=== PATIENT | female | born 1935 | race Caucasian/White ===

== ENCOUNTER 2017-10-23 06:44 | Inpatient (IN) | payer MEDICARE, MEDICAID ==
[~2017-10-23] VITALS: Ht 167.6 cm; Wt 82.6 kg
--- NOTE | ~2017-10-23 | EC ---
PATIENT:JULIA SEN DATE OF SERVICE: 10/23/17 SEX: F MEDICAL RECORD: [id number] DATE OF : [birth year] LOCATION:[facility] AGE OF PATIENT: 82 ADMISSION DATE: 10/23/17 REFERRING PHYSICIAN: INTERPRETING PHYSICIAN: SUSAN GONSALEZ MD ECHOCARDIOGRAM REPORT ECHO CHARGES 4 ECHO COMPLETE CLINICAL DIAGNOSIS: CHF ECHOCARDIOGRAPHIC MEASUREMENTS (adult normal given) AC root (d.<3.7cm) 3.1 cm LV Septum d (<1.2 cm> 1.5 cm Valve Excursion 1.4 cm LV Septum (systole) 1.7 cm Left Atria (s.<4.0cm> 4.3 cm LVPW d(<1.2cm) 1.6 cm RV (d.<2.3cm) 3.6 cm LVPW (sytole) 1.9 cm LV diastole(<5.6CM) 4.0 cm MV E-F(>70mm/sec) cm LV systole 2.9 cm LVOT Diameter 1.6 cm MV exc.(>10mm) cm Est.ejection fraction (50-75%) % Pericardial Effusion N DOPPLER: LVIT cm/sec A 55.0 cm/sec E 69.0 cm/sec LA cm/sec RVSP 16 mmHg LVOT 117 cm/sec AOP1/2T m/s Asc. Ao 140 cm/sec RVOT 77 cm/sec RA cm/sec PA 101 cm/sec AV Gradient Peak 7.89 mmHg AV Mean 4.70 mmHg AV Area 1.8 cm MV Gradient Peak 3.50 mmHg MV Mean 1.07 mmHg MV Area cm COMMENTS: Tube Fitter: 2 EMILY PARIKH Managing Consultant: 4 Dr. Gonsalez TAPE# PACS DATE OF SERVICE: 10/23/2017 PROCEDURE: Transthoracic echocardiogram. FINDINGS: 1. The left ventricle has mild left ventricular hypertrophy. Inflow characteristics are normal. There is no regional wall motion abnormality. The ejection fraction is 65%. 2. The left atrium is mildly dilated. 3. The aortic valve is normal. ECHOCARDIOGRAM REPORT [id number] JULIA SEN 4. The mitral valve has mild mitral regurgitation. 5. There is trace tricuspid regurgitation. RVSP is normal. 6. The right atrium and right ventricle are mildly dilated. CONCLUSIONS: The patient has evidence of hypertensive heart disease with mild dilatation of the right-sided structures, but normal right ventricular systolic pressures. TRANSINT:[id number] Voice Confirmation ID: [id number] DOCUMENT ID: [id number] 10/30/2017 Edited to correct date of service, dmm. SUSAN GONSALEZ MD CC: [id number] DICTATION DATE: 10/24/17 1013 HIM CLERK: 10/24/17 1100 DIS IN 10/27/17 [place] [id number]
[2017-10-23 07:26] LABS: BASOPHILS 0.2 % (0-2); EOSINOPHILS 0.3 % (0-7); IMMATURE GRANULOCYTES 0.2 % (0-5); LYMPHOCYTES 11.7 % (15-50); MCH 31.1 pg (26.0-34.0); MCHC 33.3 g/dL (31.0-37.0); MCV 93.3 fL (80.0-100.0); MEAN PLATELET VOLUME 9.6 fL (7.4-10.4); MONOCYTES 8.3 % (2-11); NEUTROPHILS 79.3 % (40-80); PLATELET COUNT 177 10x3/uL (130-400); RBC 3.86 10x6/uL (4.00-5.40); RDW 14.8 % (11.5-14.5); WBC 9.8 10x3/uL (4.8-10.8)
[2017-10-23 07:45] LABS: ALBUMIN 2.6 g/dL (3.4-5.0); ANION GAP 15.8 mmol/L (8-16); BILIRUBIN - TOTAL 0.77 mg/dL (0.2-1.3); CALCIUM 8.6 mg/dL (8.5-10.1); CARBON DIOXIDE 25.8 mmol/L (21.0-32.0); CREATININE - SERUM 1.6 mg/dL (0.6-1.3); POTASSIUM - SERUM 3.6 mmol/L (3.5-5.1); PROTEIN - SERUM 6.9 g/dL (6.4-8.2)
[2017-10-23 07:56] LABS: MAGNESIUM - SERUM 1.6 mg/dL (1.8-2.4); TROPONIN-I 0.055 ng/mL (0.000-0.060)
[2017-10-23 08:38] LABS: APPEARANCE SLT CLOUDY (CLEAR); BACTERIA MANY /hpf (NONE SEEN); BILIRUBIN NEGATIVE (NEGATIVE); COLOR YELLOW (YELLOW); GLUCOSE NEGATIVE (NEGATIVE); KETONE NEGATIVE (NEGATIVE); MUCUS <1+ /lpf (NONE SEEN); NITRITE NEGATIVE (NEGATIVE); PROTEIN NEGATIVE (NEGATIVE); RED CELLS - URINE RARE /hpf (0-5); SPECIFIC GRAVITY 1.015 (1.005-1.020); UROBILINOGEN NORMAL (NORMAL)
[2017-10-23 08:39] LABS: GRANULAR CAST RARE /lpf (NONE SEEN)
[2017-10-23 20:00] VITALS: BP 149/77
[2017-10-23 23:15] VITALS: BP 122/64; BMI 29.4
[2017-10-24] MEDS ORDERED: FISH OIL 1,0001 CA1 PO (01:00)
[2017-10-24] MEDS ORDERED: LASIX40 MG PO (01:01)
[2017-10-24] MEDS ORDERED: XALATAN 0.0052.5 ML EACH EYE (01:02)
[2017-10-24] MEDS ORDERED: LOPRESSOR25 MG PO (01:09)
[2017-10-24] MEDS ORDERED: IPRAT-ALBUT 0.5-3 ML UPD (01:11)
[2017-10-24] MEDS ORDERED: GUAIFENESI100 MG/5 M PO (01:12)
[2017-10-24] MEDS ORDERED: SENNA LAXATIVE8.6 MG PO (01:13)
[2017-10-24] MEDS ORDERED: VITAMIN B-121000 MCG PO (01:15)
[2017-10-24] MEDS ORDERED: ZOCOR40 MG PO (01:17)
[2017-10-24] MEDS ORDERED: VITAMIN D5000 UNIT PO (01:17)
[2017-10-24] MEDS ORDERED: ACETAMINOPHEN325 MG PO (01:19)
[2017-10-24] MEDS ORDERED: BAYER CHEWABLE81 MG PO (01:20)
[2017-10-24] MEDS ORDERED: BRILINTA90 MG PO (01:21)
[2017-10-24] MEDS ORDERED: CALCIUM 600+D T1 TA1 PO (01:23)
[2017-10-24] MEDS ORDERED: COSOPT EYE DROPS5 ML EACH EYE (01:23)
[2017-10-24 04:00] VITALS: BP 116/61
[2017-10-24 08:41] VITALS: BP 142/79
[2017-10-24 10:47] VITALS: Ht 167.6 cm; Wt 82.6 kg
[2017-10-24 11:55] VITALS: BP 150/78
[2017-10-24 16:04] VITALS: BP 117/64
[2017-10-24 20:00] VITALS: BP 175/83
[2017-10-25] VITALS: BP 112/69
[2017-10-25 04:00] VITALS: BP 135/54
[2017-10-25 04:15] LABS: BASOPHILS 0.2 % (0-2); EOSINOPHILS 1.3 % (0-7); HEMATOCRIT 36.9 % (36.0-48.0); HEMOGLOBIN 12.4 g/dL (12-16); LYMPHOCYTES 19.8 % (15-50); MCH 30.8 pg (26.0-34.0); MCHC 33.6 g/dL (31.0-37.0); MCV 91.8 fL (80.0-100.0); MEAN PLATELET VOLUME 9.9 fL (7.4-10.4); MONOCYTES 6.8 % (2-11); NEUTROPHILS 70.9 % (40-80); RBC 4.02 10x6/uL (4.00-5.40); RDW 14.4 % (11.5-14.5); WBC 10.1 10x3/uL (4.8-10.8)
[2017-10-25 04:21] LABS: PLATELET COUNT 246 10x3/uL (130-400)
[2017-10-25 04:31] LABS: ANION GAP 16.1 mmol/L (8-16); CALCIUM 8.6 mg/dL (8.5-10.1); CARBON DIOXIDE 25.5 mmol/L (21.0-32.0); CREATININE - SERUM 1.3 mg/dL (0.6-1.3); POTASSIUM - SERUM 3.6 mmol/L (3.5-5.1)
[2017-10-25 04:37] LABS: MAGNESIUM - SERUM 2.3 mg/dL (1.8-2.4)
[2017-10-25 08:21] VITALS: BP 155/91
[2017-10-25 12:36] VITALS: BP 122/67
[2017-10-25 16:23] VITALS: BP 122/64
[2017-10-25 23:37] VITALS: BP 120/62
[2017-10-26 04:00] VITALS: BP 109/40
[2017-10-26 08:04] VITALS: BP 126/56
[2017-10-26 11:58] VITALS: BP 139/68
[2017-10-26 16:24] VITALS: BP 124/51
[2017-10-26 20:00] VITALS: BP 139/44
[2017-10-27 04:00] VITALS: BP 163/68
[2017-10-27 09:41] VITALS: BP 123/56
[2017-10-27 11:48] VITALS: BP 102/64
[2017-10-27] MEDS ORDERED: XOPENEX 1.1.25 MG/3 INH (12:28)
[2017-10-27] MEDS ORDERED: Levaquin PREMIX PO (12:28)
[2017-10-27] MEDS ORDERED: LASIX40 MG PO (12:28)
== END 2017-10-27 14:08 | DRG 689 ==
LOC: D.ER 06:44 → D.MS 08:49 → D.SDCHOLD 08:49 → D.MS 16:16
PROVIDERS: Emergency Medicine; Family Medicine
DX: N39.0 Urinary tract infection, site not specified (principal); J18.9 Pneumonia, unspecified organism; N17.9 Acute kidney failure, unspecified; E83.42 Hypomagnesemia; E86.0 Dehydration; H40.9 Unspecified glaucoma; E78.5 Hyperlipidemia, unspecified; I25.10 Atherosclerotic heart disease of native coronary artery without angina pectoris; I11.0 Hypertensive heart disease with heart failure; I50.9 Heart failure, unspecified; M81.0 Age-related osteoporosis without current pathological fracture; E55.9 Vitamin D deficiency, unspecified; E53.8 Deficiency of other specified B group vitamins; R32 Unspecified urinary incontinence; R53.1 Weakness

== ENCOUNTER → 2019-02-05 10:04 | Outpatient (CLI) | payer MEDICARE, MEDICAID ==
[2017-10-24 10:47] VITALS: BMI 29.3
--- NOTE | ~2019-02-05 | EC ---
PATIENT:JULIA SEN DATE OF SERVICE: 02/05/19 SEX: F MEDICAL RECORD: [id number] DATE OF : [birth year] [facility] AGE OF PATIENT: 83 ADMISSION DATE: 02/05/19 REFERRING PHYSICIAN: INTERPRETING PHYSICIAN: CYDNEY SIDDIQUI MD ECHOCARDIOGRAM REPORT ECHO CHARGES 4 ECHO COMPLETE Date: 02/05/19 CLINICAL DIAGNOSIS: HTN/MITRAL REGURG ECHOCARDIOGRAPHIC MEASUREMENTS (adult normal given) AC root (d.<3.7cm) 2.5 cm LV Septum d (<1.2 cm> 1.4 cm Valve Excursion 1.4 cm LV Septum (systole) 1.6 cm Left Atria (s.<4.0cm> 3.3 cm LVPW d(<1.2cm) 1.6 cm RV (d.<2.3cm) 3.8 cm LVPW (sytole) 1.8 cm LV diastole(<5.6CM) 4.8 cm MV E-F(>70mm/sec) cm LV systole 3.5 cm LVOT Diameter 1.6 cm MV exc.(>10mm) cm Est.ejection fraction (50-75%) % DOPPLER: LVIT cm/sec A 70.0 cm/sec E 58.0 cm/sec LA cm/sec RVSP 36 mmHg LVOT 91 cm/sec AOP1/2T m/s Asc. Ao 127 cm/sec RVOT cm/sec RA cm/sec PA cm/sec AV Gradient Peak 6.43 mmHg AV Mean 3.68 mmHg AV Area 1.5 cm MV Gradient Peak 6.94 mmHg MV Mean 1.93 mmHg MV Area cm COMMENTS: Shaft Repairer: 2 EMILY PARIKH Supervisor Paper Testing: 3 Dr. Farrell TAPE# PACS Pericardial Effusion N DATE OF SERVICE: Adequate 2D, color flow, spectral Doppler, and M-Mode. Mild LVH. LV internal dimensions are normal. Wall motion is normal. EF is greater than 55%. Aortic valve is tricuspid, no evidence of stenosis by Doppler interrogation. Left atrium is normal. Mitral valve shows no prolapse. Mild MR. Right-sided chambers grossly normal. Trace TR. TRANSINT:[id number] Voice Confirmation ID: [id number] DOCUMENT ID: [id number] ECHOCARDIOGRAM REPORT [id number] JULIA SEN CYDNEY SIDDIQUI MD CC: [id number] DICTATION DATE: 02/09/19 1257 RECORDS OFFICER: 02/09/19 1504 DEP CLI 02/05/19 [place] [id number] [place] [id number]
[~2019-02-05 10:04] MED LIST: ACETAMINOPHEN325 MG PO; BAYER CHEWABLE81 MG PO; BRILINTA90 MG PO; CALCIUM 600+D T1 TA1 PO; COSOPT EYE DROPS5 ML EACH EYE; FISH OIL 1,0001 CA1 PO; GUAIFENESI100 MG/5 M PO; IPRAT-ALBUT 0.5-3 ML UPD; LASIX40 MG PO; LOPRESSOR25 MG PO; Levaquin PREMIX PO; SENNA LAXATIVE8.6 MG PO; VITAMIN B-121000 MCG PO; VITAMIN D5000 UNIT PO; XALATAN 0.0052.5 ML EACH EYE; XOPENEX 1.1.25 MG/3 INH; ZOCOR40 MG PO
== END | disposition home or self-care (01) ==
LOC: D.HCCARDIO 10:04
PROVIDERS: ATTEND Internal Medicine Interventional Cardiology
DX: I10 Essential (primary) hypertension (principal)

== ENCOUNTER 2019-03-03 14:53 | Inpatient (IN) | payer MEDICARE, MEDICAID ==
[2019-03-03 16:00] LABS: HEMATOCRIT 32.6 % (36.0-48.0); HEMOGLOBIN 10.8 g/dL (12-16); MCHC 33.1 g/dL (31.0-37.0); MCV 93.7 fL (80.0-100.0); MEAN PLATELET VOLUME 9.3 fL (7.4-10.4); PLATELET COUNT 253 10x3/uL (130-400); RBC 3.48 10x6/uL (4.00-5.40); RDW 14.6 % (11.5-14.5); WBC 8.9 10x3/uL (4.8-10.8)
[2019-03-03 16:19] LABS: ALBUMIN 2.7 g/dL (3.4-5.0); ANION GAP 12.4 mmol/L (8-16); BILIRUBIN - TOTAL 0.34 mg/dL (0.2-1.3); CARBON DIOXIDE 27.6 mmol/L (21.0-32.0); CREATININE - SERUM 1.8 mg/dL (0.6-1.3); PROTEIN - SERUM 7.4 g/dL (6.4-8.2)
[2019-03-03 16:48] LABS: EOSINOPHILS 2 % (0-7); LYMPHOCYTES 25 % (15-50); MONOCYTES 1 % (2-11); NEUTROPHILS 72 % (40-80); PLATELET ESTIMATE NORMAL
--- NOTE | 2019-03-03 17:24 | NUR ---
MULTIPLE UNSUCCESSFUL IV START ATTEMPTS MADE. DEVON MELENDEZ RN NOTIFIED.
--- NOTE | 2019-03-03 19:42 | NUR ---
REPORT CALLED TO DORYS, FLOOR NURSE
--- NOTE | 2019-03-03 19:50 | NUR ---
ZOSYN INFUSION COMPLETE AT THIS TIME.
--- NOTE | 2019-03-03 20:32 | NUR ---
RECEIVED FROM ER DEPT PER MARC TO ROOM 2217 AN 83 Y/O W/FE PER SERVICES DR. TORRES WITH DX RT LOWER EXTREMITY CELLUTITIS. RT LOWER LEG RED AND SWOLLEN WITH SOME SCALEY SKIN. ALLERGY=LIDOCAINE/CLINORIL.PLACED BED ALARM ON BED SR UP X2 CALL LIGHT WITHIN REACH. IV PATENT LEFT UPPER ARM SALINE LOCKED. VANCOMYCIN STARTED.PLACED ON TELM. SHOWS SR WITH HR 73.INC URINE BRIEF CHANGED.
[2019-03-03 21:14] VITALS: BP 149/55
--- NOTE | 2019-03-03 22:00 | NUR ---
SUJEY AQUATIC PHYSIOTHERAPIST HERE ORDERS REC'D. NOTIFIED SUPERVISER FOR MEDS.
--- NOTE | 2019-03-03 22:15 | NUR ---
OIYS=347 NO COVERAGE NEEDED.
[2019-03-04] VITALS (7 sets, daily range): BP systolic 129–160; BP diastolic 54–77; BMI 31.4; BMI 31.3
--- NOTE | 2019-03-04 | NUR ---
EYES CLOSED RESPIRATIONS WITH EASE AND UNLABORED. REPOSITIONED FOR COMFORT.
--- NOTE | 2019-03-04 01:25 | NUR ---
MEDS STARTED PER NOV. NS AT 50CC'S/HR STARTED ANTIBIOTIC HUNG AND PROTONIX GIVEN IVP.
--- NOTE | 2019-03-04 03:15 | NUR ---
INC URINE LINENS CHANGED.
[2019-03-04 05:42] LABS: ANION GAP 10.7 mmol/L (8-16); CALCIUM 8.7 mg/dL (8.5-10.1); CARBON DIOXIDE 26.1 mmol/L (21.0-32.0); CREATININE - SERUM 1.6 mg/dL (0.6-1.3); MAGNESIUM - SERUM 2.5 mg/dL (1.8-2.4); PHOSPHOROUS 3.1 mg/dL (2.5-4.9); POTASSIUM - SERUM 4.8 mmol/L (3.5-5.1)
[2019-03-04 05:56] LABS: BASOPHILS 0.3 % (0-2); EOSINOPHILS 1.8 % (0-7); HEMATOCRIT 29.8 % (36.0-48.0); HEMOGLOBIN 9.7 g/dL (12-16); IMMATURE GRANULOCYTES 2.1 % (0-5); LYMPHOCYTES 22.2 % (15-50); MCH 30.3 pg (26.0-34.0); MCHC 32.6 g/dL (31.0-37.0); MCV 93.1 fL (80.0-100.0); MEAN PLATELET VOLUME 9.1 fL (7.4-10.4); MONOCYTES 8.9 % (2-11); NEUTROPHILS 64.7 % (40-80); PLATELET COUNT 233 10x3/uL (130-400); RDW 14.7 % (11.5-14.5)
[2019-03-04 12:08] LABS: APPEARANCE CLEAR (CLEAR); BILIRUBIN NEGATIVE (NEGATIVE); COLOR YELLOW (YELLOW); GLUCOSE NEGATIVE (NEGATIVE); KETONE NEGATIVE (NEGATIVE); NITRITE NEGATIVE (NEGATIVE); PROTEIN NEGATIVE (NEGATIVE); UROBILINOGEN NORMAL (NORMAL)
[2019-03-04 12:09] LABS: BACTERIA FEW /hpf (NONE SEEN); EPITHELIAL CELLS OCC /hpf (0-5); MUCUS <1+ /lpf (NONE SEEN); RED CELLS - URINE RARE /hpf (0-5); YEAST <1+ /hpf (NONE SEEN)
[2019-03-04 14:29] LABS: % SATURATION 19 % (15-55); IRON 35 ug/dl (35-150); TOTAL IRON BIND CAPACITY 183 ug/dl (260-445); UNSAT IRON BIND CAPACITY 148 ug/dl (150-375)
[2019-03-04 14:42] LABS: FERRITIN 270 ng/mL (3-244); LDH 246 U/L (81-234)
--- NOTE | 2019-03-04 20:00 | NUR ---
PT ALERT & ORIENTED. RIGHT LOWER LEG REDDENED AND SWOLLEN. PT INCONTINENT. BED CHANGE DONE BY MARLINE STEVENS. ASSESSMENT COMPLETE PER FLOW-SHEET. NO OTHER NEEDS. WILL CONTINUE TO MONITOR.
[2019-03-05 01:08] VITALS: BP 154/65
[2019-03-05 05:21] VITALS: BP 154/79
[2019-03-05 07:00] LABS: ANION GAP 11.7 mmol/L (8-16); CALCIUM 8.5 mg/dL (8.5-10.1); CARBON DIOXIDE 25.3 mmol/L (21.0-32.0); CREATININE - SERUM 1.6 mg/dL (0.6-1.3); MAGNESIUM - SERUM 2.4 mg/dL (1.8-2.4); PHOSPHOROUS 2.7 mg/dL (2.5-4.9)
[2019-03-05 07:07] LABS: BASOPHILS 0.3 % (0-2); EOSINOPHILS 1.7 % (0-7); HEMATOCRIT 30.3 % (36.0-48.0); HEMOGLOBIN 9.8 g/dL (12-16); IMMATURE GRANULOCYTES 1.8 % (0-5); LYMPHOCYTES 23.3 % (15-50); MCH 30.2 pg (26.0-34.0); MCHC 32.3 g/dL (31.0-37.0); MCV 93.2 fL (80.0-100.0); MEAN PLATELET VOLUME 9.2 fL (7.4-10.4); MONOCYTES 7.2 % (2-11); NEUTROPHILS 65.7 % (40-80); PLATELET COUNT 256 10x3/uL (130-400); RBC 3.25 10x6/uL (4.00-5.40); RDW 14.8 % (11.5-14.5); WBC 7.2 10x3/uL (4.8-10.8)
[2019-03-05 07:20] LABS: FOLATE (FOLIC ACID) - SERUM 19.4 ng/mL (>3.0)
[2019-03-05 10:30] VITALS: BP 122/93
--- NOTE | 2019-03-05 10:30 | NUR ---
ASSIST WITH BEDPAN. PT IS WITHOUT NEEDS.MONITOR
[2019-03-05 12:00] VITALS: BP 168/78
--- NOTE | 2019-03-05 15:30 | MORECARE ---
CASE MANAGEMENT DISCHARGE SUMMARY PATIENT: JULIA SEN UNIT: [id number] ADM DATE: 03/03/19 AGE: 83 : 34 SEX: F ROOM/BED: D.2217 AUTHOR: AGUEDA PRIDE PHYSICIAN: REFERRING PHYSICIAN: CINTHYA TORRES MD DATE OF SERVICE: 03/05/19 Discharge Plan Patient Name: JULIA SEN [facility] [facility] 1935 Planned Disposition: Anticipated Discharge Date: Discharge Date: Expected LOS: Initial Reviewer: [email or web address] Initial Review Date: 03/03/2019 Generated: 03/05/19 4:30 pm Patient Name: JULIA SEN Page 52222 at 1530 All edits/amendments must be made on the electronic document DICTATION DATE: 03/05/19 1530 POWER LINE INSTALLER: CLAUDIA 03/05/19 1530 RPT#: [id number] DC DATE: STATUS: ADM IN [facility] [address] [place] [address] END OF REPORT
[2019-03-05 17:23] VITALS: BP 174/60
[2019-03-05 20:23] VITALS: BP 197/76
--- NOTE | 2019-03-05 22:48 | NUR ---
PT CONFUSED TO PLACE AND SITUATION. BP 197/76. PAGE BRANDO GONZALEZ. LISA RESTARTED HOME MEDICATIONS. GAVE PT HE MEDS. PT INCONTINENT OF BLADDER. CHANGED PADS. BUTTOCKS REDDENED. APPLIED BUTT PASTE AND TURNED PT. NO OTHER NEEDS. WILL CONTINUE TO MONITOR.
[2019-03-06 00:27] VITALS: BP 173/66
[2019-03-06 05:12] VITALS: BP 147/82
[2019-03-06 07:13] LABS: BASOPHILS 0.3 % (0-2); EOSINOPHILS 1.7 % (0-7); HEMATOCRIT 29.5 % (36.0-48.0); HEMOGLOBIN 9.7 g/dL (12-16); IMMATURE GRANULOCYTES 1.5 % (0-5); LYMPHOCYTES 22.4 % (15-50); MCH 30.6 pg (26.0-34.0); MCHC 32.9 g/dL (31.0-37.0); MCV 93.1 fL (80.0-100.0); MEAN PLATELET VOLUME 8.8 fL (7.4-10.4); MONOCYTES 8.1 % (2-11); PLATELET COUNT 258 10x3/uL (130-400); RBC 3.17 10x6/uL (4.00-5.40); RDW 14.8 % (11.5-14.5); WBC 7.1 10x3/uL (4.8-10.8)
[2019-03-06 07:34] LABS: ANION GAP 15.2 mmol/L (8-16); CALCIUM 8.2 mg/dL (8.5-10.1); CARBON DIOXIDE 21.6 mmol/L (21.0-32.0); CREATININE - SERUM 1.3 mg/dL (0.6-1.3); MAGNESIUM - SERUM 2.4 mg/dL (1.8-2.4); PHOSPHOROUS 2.4 mg/dL (2.5-4.9); POTASSIUM - SERUM 4.8 mmol/L (3.5-5.1)
[2019-03-06 09:41] VITALS: BP 122/86
[2019-03-06 12:59] VITALS: BP 153/66
[2019-03-06 16:28] VITALS: BP 196/79
--- NOTE | 2019-03-06 18:20 | MORECARE ---
CASE MANAGEMENT DISCHARGE SUMMARY PATIENT: JULIA SEN UNIT: [id number] ADM DATE: 03/03/19 AGE: 83 : 34 SEX: F ROOM/BED: D.2217 AUTHOR: AGUEDA PRIDE PHYSICIAN: REFERRING PHYSICIAN: CINTHYA TORRES MD DATE OF SERVICE: 03/06/19 Discharge Plan Patient Name: JULIA SEN [facility] [facility] 1935 Planned Disposition: Anticipated Discharge Date: Discharge Date: Expected LOS: Initial Reviewer: [email or web address] Initial Review Date: 03/03/2019 Generated: 03/06/19 7:20 pm Comments DCP- Discharge Planning Updated by [email or web address]: Kadie Rajput on 03/06/19 5:[address] PATIENT IS A RESIDENT AT [facility]. SHE WAS IN A DETENTION BED. CM SPOKE W/ SHEA AT FACILITY. CODE STATUS- FULL CODE PCP- DR RAINEY [facility]- [facility] [place] PROVIDER CM TO FOLLOW TO ASSIST WITH D/C PLANNING. Last DP export: 03/05/19 2:30 p Patient Name: JULIA SEN Page [phone] at 1820 All edits/amendments must be made on the electronic document DICTATION DATE: 03/06/191819 TAX CONSULTANT: CLAUDIA 03/06/191819 RPT#: [id number] DC DATE: STATUS: ADM IN [facility] [address] [place] [address] END OF REPORT
--- NOTE | 2019-03-06 18:33 | NUR ---
I have reviewed this patient and I concur with the Shift Assessment completed by the Licensed Practical Nurse today this shift.
[2019-03-06 20:00] VITALS: BP 199/93
[2019-03-07] VITALS: BP 189/81
--- NOTE | 2019-03-07 02:00 | NUR ---
PT CONFUSED TO PLACE AND SITUATION. INCONTINENT OF BLADDER. GOWN AND LINEN CHANGE. BUTTOCKS REDDENED, APPLIED BUTT PASTE. NO OTHER NEEDS. WILL CONTINUE TO MONITOR.
[2019-03-07 04:00] VITALS: BP 144/76
[2019-03-07 06:09] LABS: BASOPHILS 0.3 % (0-2); HEMATOCRIT 30.3 % (36.0-48.0); HEMOGLOBIN 9.8 g/dL (12-16); IMMATURE GRANULOCYTES 1.1 % (0-5); LYMPHOCYTES 13.3 % (15-50); MCH 30.6 pg (26.0-34.0); MCHC 32.3 g/dL (31.0-37.0); MCV 94.7 fL (80.0-100.0); MEAN PLATELET VOLUME 9.1 fL (7.4-10.4); MONOCYTES 9.4 % (2-11); NEUTROPHILS 74.9 % (40-80); PLATELET COUNT 274 10x3/uL (130-400); RDW 14.9 % (11.5-14.5)
[2019-03-07 06:23] LABS: WBC 10.5 10x3/uL (4.8-10.8)
[2019-03-07 06:34] LABS: CALCIUM 7.9 mg/dL (8.5-10.1); CARBON DIOXIDE 20.5 mmol/L (21.0-32.0); CREATININE - SERUM 1.3 mg/dL (0.6-1.3); MAGNESIUM - SERUM 2.1 mg/dL (1.8-2.4); PHOSPHOROUS 2.2 mg/dL (2.5-4.9); POTASSIUM - SERUM 4.5 mmol/L (3.5-5.1)
[2019-03-07 09:19] VITALS: BP 159/81
[2019-03-07 12:55] VITALS: BP 167/74
--- NOTE | 2019-03-07 15:10 | NUR ---
PATIENT RESTING WITH NO DISTRESS, PLACED ON 2L/NC D/T 02 SAT 78%RA. PATIENT RECOVERED TO 97% WITH THE 2L. PATIENT IS CONFUSED AND HALLUCINATING AT TIMES
[2019-03-07 17:28] VITALS: BP 186/66
[2019-03-07 20:00] VITALS: BP 172/84
--- NOTE | 2019-03-07 21:50 | NUR ---
PT CONFUSED TO PLACE AND SITUATION. INCONTINENT OF URINE. CLEANED PT AND COMPLETE BED CHANGE. ON BACK FOR THIS TURN. GAVE SCHEDULED MEDS GIVEN. COMPLETE ASSESSMENT PER FLOW-SHEET. BED ALARM ON. WILL CONTINUE TO MONITOR.
--- NOTE | 2019-03-08 04:35 | NUR ---
ASSISTANT ACTIVITIES DIRECTOR CALLED. PT HAS BEEN IN UNCONTROLLED A-FIB FOR ABOUT AN HOUR. NO DYSPNEA OR DISTRESS NOTED. VITAL SIGNS STABLE - T-97.0, BP-141/69, P-112, R-18, OX-97% 2L/NC. WILL MONITOR PT, IF NOT CONVERTED BACK TO SR BY 0600 WILL CALL PHYSICIAN. CHANGED AND TURNED PT. RESTING QUIETLY, EYES CLOSED.
[2019-03-08 05:07] VITALS: BP 141/69
[2019-03-08 05:07] LABS: BASOPHILS 0.2 % (0-2); EOSINOPHILS 1.2 % (0-7); HEMATOCRIT 27.6 % (36.0-48.0); HEMOGLOBIN 9.1 g/dL (12-16); IMMATURE GRANULOCYTES 1.4 % (0-5); LYMPHOCYTES 15.3 % (15-50); MCH 30.7 pg (26.0-34.0); MCV 93.2 fL (80.0-100.0); MONOCYTES 9.7 % (2-11); NEUTROPHILS 72.2 % (40-80); PLATELET COUNT 247 10x3/uL (130-400); RBC 2.96 10x6/uL (4.00-5.40); WBC 8.4 10x3/uL (4.8-10.8)
[2019-03-08 05:24] LABS: ANION GAP 15.5 mmol/L (8-16); CALCIUM 7.8 mg/dL (8.5-10.1); CARBON DIOXIDE 19.9 mmol/L (21.0-32.0); CREATININE - SERUM 1.2 mg/dL (0.6-1.3); POTASSIUM - SERUM 4.4 mmol/L (3.5-5.1)
--- NOTE | 2019-03-08 06:42 | NUR ---
UNCONTROLLED AFIB NOT CONVERTED BACK SINCE START AT 033. CALLED BRANDO GALLEGOS. RECEIVED ORDER TO CONSULT CARDIOLOGY. SPOKE WITH DR. LARA.
[2019-03-08 08:21] VITALS: BMI 31.3
[2019-03-08 09:01] VITALS: BP 133/82
[2019-03-08 13:18] VITALS: BP 129/67
[2019-03-08 16:45] VITALS: BP 158/69
--- NOTE | 2019-03-08 20:00 | NUR ---
ASSESSMENT PER FLOWSHEET. IV PATENT LEFT ARM OF NS AT 50CC'S/HR. SITE CLEAR. O2 ON 2L/M PER NC. NO DISTRESS. TELM. SHOWS SR WITH HR 69. BED ALARM BED ACTIVATED SR UP X2 CALL LIGHT WITHIN REACH. RT LEG RED AND SWOLLEN LEFT LEG WITH SCD.
--- NOTE | 2019-03-08 21:00 | NUR ---
MEDS GIVEN PER MAR. INC URINE LINENS CHANGED.
[2019-03-08 21:12] VITALS: BP 150/59
--- NOTE | 2019-03-09 | NUR ---
EYES CLOSED RESPIRATIONS WITH EASE AND UNLABORED.
[2019-03-09 01:12] VITALS: BP 125/54
--- NOTE | 2019-03-09 04:00 | NUR ---
INC URINE COMPLETE BED BATH WITH LINENS CHANGED.
[2019-03-09 04:45] VITALS: BP 134/60
[2019-03-09 06:00] LABS: BASOPHILS 0.4 % (0-2); EOSINOPHILS 2.9 % (0-7); HEMATOCRIT 27.7 % (36.0-48.0); HEMOGLOBIN 8.9 g/dL (12-16); IMMATURE GRANULOCYTES 3.2 % (0-5); LYMPHOCYTES 21.4 % (15-50); MCH 30.3 pg (26.0-34.0); MCHC 32.1 g/dL (31.0-37.0); MCV 94.2 fL (80.0-100.0); MONOCYTES 11.3 % (2-11); NEUTROPHILS 60.8 % (40-80); PLATELET COUNT 231 10x3/uL (130-400); RBC 2.94 10x6/uL (4.00-5.40); RDW 15.6 % (11.5-14.5)
[2019-03-09 06:26] LABS: ALBUMIN 2.5 g/dL (3.4-5.0); ANION GAP 13.7 mmol/L (8-16); BILIRUBIN - TOTAL 0.39 mg/dL (0.2-1.3); CARBON DIOXIDE 20.9 mmol/L (21.0-32.0); CREATININE - SERUM 1.4 mg/dL (0.6-1.3); POTASSIUM - SERUM 4.6 mmol/L (3.5-5.1); PROTEIN - SERUM 6.7 g/dL (6.4-8.2)
--- NOTE | 2019-03-09 07:45 | NUR ---
ASSESSMENT PER FLOW SHEET. PT IS WITHOUT DISTRESS.FALL PREVENTION IN PLACE WITH RENATA. MONITOR FOR NEEDS
[2019-03-09 08:00] VITALS: BP 152/65
[2019-03-09] MEDS ORDERED: KEFLEX500 MG PO (12:00)
[2019-03-09] MEDS ORDERED: BETAPACE 80 MG80 MG PO (12:00)
[2019-03-09] MEDS ORDERED: FLORAJEN3 CAPS460 MG PO (12:00)
--- NOTE | 2019-03-09 12:01 | MORECARE ---
CASE MANAGEMENT DISCHARGE SUMMARY PATIENT: JULIA SEN UNIT: [id number] ADM DATE: 03/03/19 AGE: 83 : 34 SEX: F ROOM/BED: D.2217 AUTHOR: AGUEDA PRIDE PHYSICIAN: REFERRING PHYSICIAN: CINTHYA TORRES MD DATE OF SERVICE: 03/09/19 Discharge Plan Patient Name: JULIA SEN [facility] [facility] 1935 Planned Disposition: Anticipated Discharge Date: Discharge Date: Expected LOS: Initial Reviewer: [email or web address] Initial Review Date: 03/03/2019 Generated: 03/09/19 1:01 pm DCP- Discharge Planning Updated by [email or web address]: Kadie Rajput on 03/06/19 5:[address] PATIENT IS A RESIDENT AT [facility]. SHE WAS IN A SKILLED NURSING BED. CM SPOKE W/ SHEA AT FACILITY. CODE STATUS- FULL CODE PCP- DR RAINEY ALLERGIES- [facility]- [place] PROVIDER CM TO FOLLOW TO ASSIST WITH D/C PLANNING. External Providers External Provider: [facility] Next Contact Date: Service Request Date: Service Type: Resolution: Reviewer: Comments: Last DP export: 03/06/19 5:20 p Patient Name: JULIA SEN Page [phone] at 1201 All edits/amendments must be made on the electronic document DICTATION DATE: 03/09/19 1200 EXTRACT MIXER: CLAUDIA 03/09/19 1200 RPT#: [id number] DC DATE: STATUS: ADM IN [facility] [address] [place] [address] END OF REPORT
--- NOTE | 2019-03-09 12:42 | MORECARE ---
CASE MANAGEMENT DISCHARGE SUMMARY PATIENT: JULIA SEN UNIT: [id number] ADM DATE: 03/03/19 AGE: 83 : 34 SEX: F ROOM/BED: D.2217 AUTHOR: AGUEDA PRIDE PHYSICIAN: REFERRING PHYSICIAN: CINTHYA TORRES MD DATE OF SERVICE: 03/09/19 Discharge Plan Patient Name: JULIA SEN Facility: [facility]:[place] : 1935 Planned Disposition: Anticipated Discharge Date: Discharge Date: Expected LOS: Initial Reviewer: [id number] Initial Review Date: 03/03/2019 Generated: 03/09/19 1:42 pm Comments DCP- Discharge Planning Updated by [id number]: Gail Petersen on 03/09/19 11:[address] Patient Name: JULIA SEN Admission Status: ER Accout number: [id number] Admission Date: 03-03-2019 : 1935 Admission Diagnosis:CELLULITIS OF RIGHT LOWER LIMB Attending: CINTHYA TORRES Current LOS: 6 Anticipated DC Date: Planned Disposition: Primary Insurance: [employer] CHOICE PPO MCR [employer] Discharge Planning Comments: CM SPOKE WITH [facility], THEY WILL SEND VAN TO [place] AT ABOUT 3PM TODAY. CM TO FOLLOW AND ASSIST NEEDED. Road Machine Operator: Gail Petersen DCP- Discharge Planning Updated by [id number]: Kadie Stricklands on 03/06/19 5:[address] PATIENT IS A RESIDENT AT [facility]. SHE WAS IN A FDC BED. CM SPOKE W/ SHEA AT FACILITY. CODE STATUS- FULL CODE PCP- DR RAINEY ALLERGIES- [facility]- [place] PROVIDER CM TO FOLLOW TO ASSIST WITH D/C PLANNING. Last DP export: 03/09/19 11:01 a Patient Name: JULIA SEN Page 44407 at 1242 All edits/amendments must be made on the electronic document DICTATION DATE: 03/09/19 1241 CREPE SOLE SCOURER: CLAUDIA 03/09/19 1241 RPT#: [id number] DC DATE: STATUS: [facility] [address] [place] [address] END OF REPORT
--- NOTE | 2019-03-09 13:50 | NUR ---
PT O2 SATURATION 93% ON ROOM AIR
[2019-03-09 15:10] VITALS: BP 159/77
--- NOTE | 2019-03-09 15:42 | NUR ---
REPORT TO SELVIN,SPOKE WITH REYNA
--- NOTE | 2019-03-09 16:06 | NUR ---
LEFT UNIT WITH [facility] STAFF FOR TRANSPORT TO FACILITY
--- NOTE | 2019-03-10 08:00 | MORECARE ---
CASE MANAGEMENT DISCHARGE SUMMARY PATIENT: JULIA SEN UNIT: [id number] ADM DATE: 03/03/19 AGE: 83 : 34 SEX: F ROOM/BED: D.2217 AUTHOR: AGUEDA PRIDE PHYSICIAN: REFERRING PHYSICIAN: CINTHYA TORRES MD DATE OF SERVICE: 03/10/19 Discharge Plan Patient Name: JULIA SEN Facility: [facility]:[place] : 1935 Planned Disposition: Anticipated Discharge Date: Discharge Date: 03/09/2019 Expected LOS: Initial Reviewer: [email or web address] Initial Review Date: 03/03/2019 Generated: 03/10/19 9:00 am Comments DCP- Discharge Planning Updated by [email or web address]: Gail Petersen on 03/09/19 11:[address] Patient Name: JULIA SEN Admission Status: ER Accout number: [id number] Admission Date: 03-03-2019 : 1935 Admission Diagnosis:CELLULITIS OF RIGHT LOWER LIMB Attending: CINTHYA TORRES Current LOS: 6 Anticipated DC Date: Planned Disposition: Primary Insurance: [employer] CHOICE PPO MCR [facility] Discharge Planning Comments: CM SPOKE WITH [facility], THEY WILL SEND VAN TO [facility] AT ABOUT 3PM TODAY. CM TO FOLLOW AND ASSIST NEEDED. Mannequin Mounter: Gail Petersen DCP- Discharge Planning Updated by [email or web address]: Kadieella Rajput on 03/06/19 5:[address] PATIENT IS A RESIDENT AT [facility]. SHE WAS IN A DATA OFFICER BED. CM SPOKE W/ SHEA AT FACILITY. CODE STATUS- FULL CODE PCP- DR RAINEY ALLERGIES- [facility] [place] PROVIDER CM TO FOLLOW TO ASSIST WITH D/C PLANNING. Last DP export: 03/09/19 11:42 a Patient Name: JULIA SEN Page 21034 at 0800 All edits/amendments must be made on the electronic document DICTATION DATE: 03/10/19 0759 PAINTER AND DECORATOR: CLAUDIA 03/10/19 0759 RPT#: [id number] DC DATE:03/09/19 STATUS: DIS IN [facility] [address] [facility] [place] [address] END OF REPORT
== END 2019-03-09 16:06 | DRG 603 ==
LOC: D.ER 14:53 → D.MS 17:50
PROVIDERS: Family Medicine; ADMIT Internal Medicine Nephrology; ATTEND Internal Medicine Nephrology
DX: L03.115 Cellulitis of right lower limb (principal); N17.9 Acute kidney failure, unspecified; B37.49 Other urogenital candidiasis; N39.0 Urinary tract infection, site not specified; I50.32 Chronic diastolic (congestive) heart failure; D64.9 Anemia, unspecified; E78.5 Hyperlipidemia, unspecified; I25.10 Atherosclerotic heart disease of native coronary artery without angina pectoris; F32.9 Major depressive disorder, single episode, unspecified; M81.0 Age-related osteoporosis without current pathological fracture; I48.91 Unspecified atrial fibrillation

== ENCOUNTER 2019-11-14 14:27 | Emergency (ER) | payer MEDICARE, MEDICAID ==
[~2019-11-14] VITALS: Ht 170.2 cm; Wt 89.5 kg
[~2019-11-14 14:27] MED LIST changes: +BETAPACE 80 MG80 MG PO; +FLORAJEN3 CAPS460 MG PO; +KEFLEX500 MG PO
[2019-11-14 14:33] VITALS: Ht 170.2 cm; Wt 89.5 kg
[2019-11-14 15:28] LABS: BASOPHILS 0.1 % (0-2); EOSINOPHILS 0 % (0-7); HEMATOCRIT 29.9 % (36.0-48.0); HEMOGLOBIN 9.6 g/dL (12-16); IMMATURE GRANULOCYTES 0.9 % (0-5); LYMPHOCYTES 31.8 % (15-50); MCH 30.9 pg (26.0-34.0); MCHC 32.1 g/dL (31.0-37.0); MCV 96.1 fL (80.0-100.0); MONOCYTES 9.6 % (2-11); NEUTROPHILS 57.6 % (40-80); PLATELET COUNT 206 10x3/uL (130-400); RBC 3.11 10x6/uL (4.00-5.40)
[2019-11-14 15:35] LABS: APTT 26.6 SECONDS (22.8-39.4); INR 1.01 (0.85-1.17); PROTIME 13.3 SECONDS (11.6-15.0)
[2019-11-14 15:37] LABS: CALCIUM 9.5 mg/dL (8.5-10.1); CARBON DIOXIDE 30.6 mmol/L (21.0-32.0); POTASSIUM - SERUM 4.6 mmol/L (3.5-5.1)
[2019-11-14 15:43] LABS: ALBUMIN 3.3 g/dL (3.4-5.0); BILIRUBIN - TOTAL 0.41 mg/dL (0.2-1.3); PROTEIN - SERUM 7.6 g/dL (6.4-8.2)
[2019-11-14] MEDS ORDERED: CYCLOBENZAPRINE10 MG PO (17:08)
[2019-11-14 18:39] VITALS: BP 142/78
== END 2019-11-14 18:40 | disposition home or self-care (01) ==
LOC: D.ER 14:27
PROVIDERS: Family Medicine
DX: S80.12XA Contusion of left lower leg, initial encounter (principal); S63.502A Unspecified sprain of left wrist, initial encounter; S00.01XA Abrasion of scalp, initial encounter; S00.03XA Contusion of scalp, initial encounter; W19.XXXA Unspecified fall, initial encounter; Y93.9 Activity, unspecified; Y92.9 Unspecified place or not applicable; I10 Essential (primary) hypertension